=== PATIENT | female | born 1975 | race American Indian/Alaskan Native ===

== ENCOUNTER 2020-02-21 21:28 | Emergency (ER) | payer SELFPAY | END 2020-02-22 07:39 | disposition left against medical advice (07) | LOC: ED 21:28 | DX: F41.9 Anxiety disorder, unspecified (principal); G40.909 Epilepsy, unspecified, not intractable, without status epilepticus; Z53.21 Procedure and treatment not carried out due to patient leaving prior to being seen by health care provider ==

== ENCOUNTER 2021-02-22 08:15 | Outpatient (CLI) | payer OTHER | END 2021-02-22 08:16 | disposition home or self-care (01) | LOC: PF 08:15 | PROVIDERS: ATTEND Internal Medicine | DX: R06.02 Shortness of breath (principal); I50.9 Heart failure, unspecified; E05.90 Thyrotoxicosis, unspecified without thyrotoxic crisis or storm | CPT/HCPCS: 94010; 94729 ==